=== PATIENT | female | born 1965 | race Two or more races ===

== ENCOUNTER 2024-04-25 09:12 | Inpatient (IN) | payer OTHER ==
[~2024-04-25] VITALS: Ht 162.6 cm; Wt 66.8 kg
[2024-04-25 10:27] LABS: BASOPHILS % (AUTO) 0.4 % (0.0-2.0); EOSINOPHILS % (AUTO) 0.5 % (1.0-6.0); HEMOGLOBIN 13.5 g/dL (12.0-16.0); LYMPHOCYTES # (AUTO) 1.2 K/uL (1.0-4.8); LYMPHOCYTES % (AUTO) 21.3 % (22.0-44.0); MEAN CORPUSCULAR HEMOGLOBIN 29.7 pg (26.0-34.0); MEAN CORPUSCULAR HGB CONC 33.8 G/dL (31.0-37.0); MEAN CORPUSCULAR VOLUME 88 fL (80-100); MONOCYTES # (AUTO) 0.3 K/uL (0.1-1.0); MONOCYTES % (AUTO) 6.3 % (2.0-9.0); NEUTROPHILS # (AUTO) 3.9 K/uL (1.8-7.7); NEUTROPHILS % (AUTO) 71.5 % (40.0-70.0); PLATELET COUNT (AUTO) 286 K/uL (150-450); RED BLOOD CELL COUNT(AUTO) 4.56 MIL/uL (4.00-5.20); RED CELL DISTRIBUTION WIDTH 13.9 % (11.5-14.5); WHITE BLOOD COUNT (AUTO) 5.4 K/uL (4.5-11.0)
[2024-04-25 10:35] LABS: ANION GAP 10 mmol/L (8-16); CALCIUM, TOTAL 8.7 mg/dL (8.8-10.5); CARBON DIOXIDE 27 mmol/L (22-29); CHLORIDE 106 mmol/L (98-107); CREATININE 0.69 mg/dL (0.60-1.30); GLOMERULAR FILTR. RATE CALC > 60 mL/min (>60); GLUCOSE,RANDOM 107 mg/dL (70-110); POTASSIUM 3.7 mmol/L (3.5-5.1); SODIUM SERUM 143 mmol/L (136-145); UREA NITROGEN, BLOOD 13 mg/dL (7-18)
[2024-04-25 10:44] LABS: ALCOHOL, BLOOD (SERUM) < 3 mg/dL (0-10)
[2024-04-25] MEDS ORDERED: MAGNESIUM HYDROXIDE SUSPENSION 30 ML UDCUP PO PRN (10:45)
[2024-04-25] MEDS ORDERED: ZOLPIDEM TARTRATE 5 MG TABLET PO PRN (10:45)
[2024-04-25 10:51] LABS: ALCOHOL, URINE DRUG SCREEN NEGATIVE (NEGATIVE); AMPHET/METH SCREEN,URINE NEGATIVE (NEGATIVE); BARBITURATE SCREEN, URINE NEGATIVE (NEGATIVE); BENZODIAZEPINES SCREEN,URINE NEGATIVE (NEGATIVE); CANNABINOID SCREEN,URINE NEGATIVE (NEGATIVE); COCAINE SCREEN,URINE NEGATIVE (NEGATIVE); METHADONE SCREEN, URINE NEGATIVE (NEGATIVE); OPIATE SCREEN,URINE NEGATIVE (NEGATIVE); PHENCYCLIDINE SCREEN,URINE NEGATIVE (NEGATIVE)
[2024-04-25] MEDS: ACETAMINOPHEN 325 MG TABLET PO PRN (15:38)
[2024-04-26 02:00] VITALS: BP 118/69; PULSE 55; RESP 18; TEMP 97.9; O2SAT 98
[2024-04-26 06:20] VITALS: BP 124/59; PULSE 60; RESP 18; TEMP 97.9; O2SAT 99
[2024-04-26 08:15] VITALS: BP 107/64; PULSE 53; RESP 18; TEMP 98.1; O2SAT 99
[2024-04-26 20:35] VITALS: BP 124/62; PULSE 54; RESP 18; TEMP 97.8; O2SAT 97
[2024-04-27 08:14] VITALS: BP 110/65; PULSE 62; RESP 18; TEMP 98; O2SAT 99
[2024-04-27] MEDS ORDERED: ACET650S14 PR (10:53)
[2024-04-27] MEDS ORDERED: MAGN-169 PO (10:54)
== END 2024-04-27 16:15 | DRG 885 ==
LOC: EMS 09:19 → EDH 10:48 → 6S 04-26 01:56
PROVIDERS: ADMIT Internal Medicine; ATTEND Internal Medicine
PROC: GZ56ZZZ Individual Psychotherapy, Supportive (ICD-10-PCS; principal; 2024-04-27)
DX: F33.0 Major depressive disorder, recurrent, mild (principal); R45.851 Suicidal ideations; F43.21 Adjustment disorder with depressed mood; I10 Essential (primary) hypertension
CPT/HCPCS: 80048; 80307; 85025; 99285; G0378; G0480